=== PATIENT | female | born 1995 | race Caucasian/White ===

== ENCOUNTER 2023-10-15 05:30 | Inpatient (IN) | payer BC ==
[2023-10-15] MEDS ORDERED: Lidocaine 1% (PF) 30 ML VIAL SC PRN (06:27)
[2023-10-15] MEDS ORDERED: Lactated Ringer's 1,000 ML IV SCH (06:27)
[2023-10-15] MEDS ORDERED: HYDROcodone/Acetaminophen 5/325 mg Tablet PO PRN ×4 (06:27→18:22)
[2023-10-15] MEDS ORDERED: fentaNYL 50 mcg/mL 1 mL Vial SLOW IVP PRN (06:27)
[2023-10-15] MEDS ORDERED: Ibuprofen 800 MG TAB PO PRN (06:27)
[2023-10-15] MEDS ORDERED: Ondansetron PF 4 MG/2 ML Vial IVP PRN ×3 (06:27→18:22)
[2023-10-15] MEDS ORDERED: hydrALAZINE 20 MG/ML VIAL SLOW IVP PRN ×2 (06:27→18:22)
[2023-10-15] MEDS ORDERED: Oxytocin 30 units/NS 500 ML 500 ML IV SCH ×3 (06:27)
[2023-10-15] MEDS ORDERED: Promethazine HCl 25 MG/ML VIAL IM PRN ×2 (06:27→11:12)
[2023-10-15 08:54] LABS: Hematocrit 32.9 % (34.9-44.5); Hemoglobin 11.2 g/dL (12.0-15.5); Mean Corpuscular Volume 88.2 fl (81.6-98.3); Mean Platelet Volume 9.7 fl (7.4-10.4); Platelet Count 221 10x3/uL (150-450); RBC Distribution Width 13.2 % (11.5-14.5); Red Blood Cell (RBC) Count 3.73 10x6/uL (3.90-5.03); White Blood Cell (WBC) Count 12.8 10x3/uL (3.5-10.5)
[2023-10-15] MEDS ORDERED: Oxytocin 30 units/NS 500 ML 500 ML ONE (09:13)
[2023-10-15] MEDS ORDERED: fentaNYL/Ropivacaine Epidural 100 ML ONE (10:35)
[2023-10-15] MEDS ORDERED: Acetaminophen 325 MG TAB PO PRN (11:12)
[2023-10-15] MEDS ORDERED: Naloxone HCl 0.4 mg/ml Vial IVP PRN ×2 (11:12)
[2023-10-15] MEDS ORDERED: ePHEDrine Sulfate 50 MG/10 ML VIAL SLOW IVP PRN (11:12)
[2023-10-15] MEDS ORDERED: Moisturizing Cream (Eucerin) 113 GM JAR TOP PRN (11:12)
[2023-10-15] MEDS ORDERED: diphenhydrAMINE 50 MG/ML VIAL IVP PRN (11:12)
[2023-10-15] MEDS ORDERED: Lactated Ringer's 500 ML IV PRN (11:12)
[2023-10-15] MEDS ORDERED: Communication Order-Pharmacy FS SCH (11:15)
[2023-10-15] MEDS ORDERED: fentaNYL 2 mcg/Ropivacaine 0.2% Epidural 100 ML CADD EPIDURAL SCH (11:15)
[2023-10-15 12:16] LABS: Syphilis Antibody Nonreactive (Nonreactive); Syphilis Antibody Index 0.03 S/CO (<1.00 Non-Reactive)
[2023-10-15 12:18] LABS: HBSAg Index 0.21 S/CO (0-0.99); Hep B Surf Ag - L&D Non-Reactive S/CO (NonReactive)
[2023-10-15] MEDS ORDERED: Bupivacaine 0.25% HCL 30 ML VIAL ONE (13:00)
[2023-10-15] MEDS ORDERED: Ferrous Sulfate 325 MG TAB PO SCH ×2 (18:22→18:30)
[2023-10-15] MEDS ORDERED: Benzocaine-Menthol 82.5 ML CAN TOP PRN (18:22)
[2023-10-15] MEDS ORDERED: Lanolin Ointment 7 GM TUBE TOP PRN (18:22)
[2023-10-15] MEDS ORDERED: Milk Of Magnesia 30 ML UDCUP PO PRN (18:22)
[2023-10-15] MEDS ORDERED: Boostrix 0.5 ML (Tdap) VIAL (>/=7 yrs of age) IM ONE (18:22)
[2023-10-15] MEDS ORDERED: Bisacodyl 10 MG SUPP PR PRN (18:22)
[2023-10-15] MEDS ORDERED: diphenhydrAMINE 25 MG CAP PO PRN (18:22)
[2023-10-15] MEDS ORDERED: Preparation H Ointment 28 GM TUBE PR PRN (18:22)
[2023-10-15] MEDS: Ibuprofen 800 MG TAB PO SCH (19:04)
[2023-10-15] MEDS: Docusate 100 MG CAP PO SCH (21:17)
[2023-10-16] MEDS: Ibuprofen 800 MG TAB PO SCH ×2 (03:06→11:01)
[2023-10-16] MEDS: Docusate 100 MG CAP PO SCH (07:50)
[2023-10-16] MEDS ORDERED: Ferrous Sulfate 325 MG TAB PO SCH (08:00)
[2023-10-16] MEDS ORDERED: Prenatal Vitamin 1 TAB PO SCH (09:00)
[2023-10-16 11:43] VITALS: BP 109/55; TEMP 98.6
== END 2023-10-16 17:00 | disposition home or self-care (01) | DRG 807 ==
LOC: CSHLD 06:22 → CSHPP 17:20
PROVIDERS: ADMIT Obstetrics & Gynecology; ATTEND Obstetrics & Gynecology
PROC: 10E0XZZ Delivery of Products of Conception, External Approach (ICD-10-PCS; principal; 2023-10-15)
PROC: 0UQMXZZ Repair Vulva, External Approach (ICD-10-PCS; 2023-10-15)
PROC: 10907ZC Drainage of Amniotic Fluid, Therapeutic from Products of Conception, Via Natural or Artificial Opening (ICD-10-PCS; 2023-10-15)
DX: O24.420 Gestational diabetes mellitus in childbirth, diet controlled (principal); Z37.0 Single live birth; Z3A.39 39 weeks gestation of pregnancy; O71.82 Other specified trauma to perineum and vulva
CPT/HCPCS: 36415; 51702; 85027; 86780; 86850; 86900; 86901; 87340; J2590; S0020